=== PATIENT | male | born 1990 | race Caucasian/White ===

== ENCOUNTER 2019-02-07 22:21 | Observation (INO) ==
[2019-02-08] MEDS ORDERED: Ondansetron 4 MG/2 ML VIAL IVP PRN (00:43)
[2019-02-08] MEDS ORDERED: Naloxone 0.4 MG/ML INJ IVP PRN (00:43)
[2019-02-08] MEDS ORDERED: Ketorolac 30 MG/ML VIAL IVP PRN (00:47)
--- NOTE | 2019-02-08 00:51 | Internal Med History&Physical ---
Date of Encounter: 02/08/19 Time of Encounter: 00:48 Internal Medicine - H&P: HPI Chief complaint: Flank pain History of present illness: Mr. Geronimo is a 28 year old male with past medical history of hypertension and nephrolithiasis who initially presented to [facility] after several episodes of left-sided flank pain which began yesterday. Pain described as amparo p, 9 out of 10 in intensity radiating to his left groin. The patient took tramadol and Zofran which partially relieved his pain. However, pain recurred today and was associated with 1 episode of nausea and vomiting. Patient was seen on January 10 at [facility] for similar complaints and diagnosed with a 6 mm stone in the left proximal ureter. Patient followed up with Dr. Toscano with urology and agreed to conservative management with the hope of the stone passing on its own. Patient was given Dilaudid at [facility] which did not improve his pain. He was subsequently given Toradol which appeared to help. Laboratory workup at [facility] was relatively unremarkable. Case was discussed with Dr. Cabrera with urology who agreed to consult on patient. Patient currently afebrile, mildly hypertensive. Pain appears to be improved and tolerable. We will continue IV hydration and pain control as needed. Past Med Surg Social Fam HX - Past Medical History Medical history: hyperlipidemia, hypertension Additional medical history: kidney stone Psychiatric history: no psych history - Social History Smoking Status: Never smoker Smokeless Tobacco Status: No Alcohol use: none Drug use: none - Family History Mother Living Status: Still Living Father Living Status: Still Living Internal Medicine - H&P: Meds Atorvastatin [Lipitor] 10 mg PO HS 02/08/19 [History] Lisinopril [Zestril] 40 mg PO DAILY 02/08/19 [History] Allergy/AdvReac Type Severity Reaction Status Date / Time No Known Allergies Allergy Verified 02/08/19 00:33 All Systems PM: A 10-system review of systems was performed and is negative for pertinent findings except as documented above in the HPI. - Constitutional Constitutional: no chills, no fever(s), no night sweats - EENT Eyes: no change in vision, no discharge, no pain, no photophobia Ears: no ear discharge, no ear pain, no tinnitus Nose, mouth and throat: no dysphagia, no nasal discharge, no neck pain, no sore throat - Cardiovascular Cardiovascular ROS IM: no chest pain, no diaphoresis, no dyspnea, no lightheadedness, no palpitations, no syncope - Respiratory Respiratory: no cough, no dyspnea, no wheezing, no excessive phlegm production - Gastrointestinal Gastrointestinal: no abdominal pain, no diarrhea, no hematemesis, no hematochezia, no melena, no nausea, no vomiting - Musculoskeletal Musculoskeletal ROS IM: no numbness, no tingling - Integumentary Integumentary IM: no rash, no unusual bruising - Neurological Neurological ROS: no confusion, no convulsions, no focal weakness, no numbness, no tingling, no tremor(s) - Hematologic/Lymphatic Hematologic/Lymphatic: no easy bruising - Constitutional Vitals: Temp Pulse Resp BP Pulse Ox 98.6 F 66 16 166/91 98 02/08/19 00:12 02/08/19 00:12 02/08/19 00:12 02/08/19 00:12 02/08/19 00:12 Exam: General: Alert and oriented Skin:Normal color, no rash, no lesions. HEENT:EOM, pupils equal, round and reactive. Cardiovascular:Normal S1 & S2, no rubs, murmurs or gallops. No JVD. Pulse regular. Lungs:Normal breath sounds, no wheezes or crackles. Abdomen:Soft, non-tender, no rigidity. Extremities:No deformity, no edema or tenderness, no joint swelling or clubbing. Neurological:Normal cognition and motor skills. Pulses:Carotid and radial pulses normal +2. Rest of the physical exam is non contributory Internal Med - H&P Results - Labs CBC & Chem 7: 02/09/19 01:02 02/09/19 01:02 - Assessment and Plan (1) Nephrolithiasis Current Visit: Yes Status: Acute Assessment and plan: Recent history of nephrolithiasis. KUB obtained on 01/28/2019 again shows an elongated 6 mm x 2 mm calcification within the left ureter consistent with patient's left-sided flank pain. Currently hemodynamically stable. No evidence of sepsis. Urine shows negative nitrites and leukocyte esterase. -Continue IV fluids -Continue pain control as needed -NPO except for home meds. We will give another dose of tamsulosin in the mor melia. -Urology consult (2) Hypertension Current Visit: Yes Status: Acute Assessment and plan: History of hypertension. Blood pressure 166/91 on arrival. -Resume patient's lisinopril Qualifiers: Hypertension type: essential hypertension Qualified Code(s): I10 - Essential (primary) hypertension (3) Hyperlipidemia Current Visit: Yes Status: Acute Assessment and plan: Continue atorvastatin Qualifiers: Hyperlipidemia type: unspecified Qualified Code(s): E78.5 - Hyperlipidemia, unspecified (4) DVT prophylaxis Current Visit: Yes Status: Acute Assessment and plan: Ambulate ad pal. - Time Spent With Patient Total time spent is greater than 50% in coordination of care (as documented) at patient's floor/unit and/or counseling patient:
[2019-02-08 01:18] LABS: Bilirubin,Urine Negative (Negative); Blood,Urine Large (Negative); Clarity,Urine Cloudy (Clear); Color,Urine Yellow (Yellow); Glucose,Urine (UA) Normal (Normal); Ketones,Urine Negative (Negative); Leukocyte Esterase,Urine Negative (Negative); Nitrite,Urine Negative (Negative); PH,Urine 6.5 pH Units (5.0-8.0); Protein,Urine 30 mg/dL (Neg-Trace); Specific Gravity,Urine 1.015 (1.010-1.025); Urobilinogen,Urine Normal (Normal)
[2019-02-08 01:20] LABS: Bacteria,Urine None Seen per hpf (None-Few); Hyaline Casts,Urine None Seen per lpf (None-Few); RBC,Urine TNTC per hpf (0-3); Squamous Epithelial Cell,Urine Moderate per lpf (None-Few)
[2019-02-08 01:27] LABS: Basophils # 0.1 K/mcL (0.0-0.2); Basophils % 0.4 %; Eosinophils # 0.1 K/mcL (0.0-0.6); Eosinophils % 0.6 %; Hematocrit 40.5 % (37.5-50.1); Hemoglobin 13.5 g/dL (12.9-16.9); Immature Granulocytes % 0.3 % (0-4); Lymphocytes # 1.8 K/mcL (0.6-4.6); Lymphocytes % 16.2 %; Mean Corpuscular HGB Conc 33.3 g/dL (31.6-35.5); Mean Corpuscular Hemoglobin 29.6 pg (28.0-33.3); Mean Corpuscular Volume 88.8 fL (83.0-100.0); Monocytes # 0.7 K/mcL (0.0-1.3); Monocytes % 6.6 %; Neutrophils # 8.5 K/mcL (1.6-8.9); Platelet Count 302 K/mcL (140-400); Red Blood Count 4.56 M/mcL (4.19-5.50); Red Cell Distribution Width 12.8 % (11.5-14.5); Segmented Neutrophils % 75.9 %; White Blood Count 11.2 K/mcL (4.3-11.1)
[2019-02-08 01:45] LABS: Alanine Aminotransferase 41 Units/L (7-52); Albumin 4.4 g/dL (3.5-5.7); Albumin/Globulin Ratio 1.5 (1.1-2.2); Alkaline Phosphatase 73 Units/L (34-104); Aspartate Amino Transferase 25 Units/L (13-39); BUN/Creatinine Ratio 11 (6-26); Bilirubin,Total 1.9 mg/dL (0.3-1.0); Blood Urea Nitrogen 11 mg/dL (6-20); Calcium 9.3 mg/dL (8.6-10.3); Carbon Dioxide 22 mEq/L (23-29); Chloride 108 mEq/L (98-107); Globulin 2.9 g/dL (2.4-3.5); Glucose 108 mg/dL (70-105); Osmolality,Calculated 286 (280-300); Potassium 3.9 mEq/L (3.5-5.1); Sodium 138 mEq/L (136-145); Total Protein 7.3 g/dL (6.4-8.9); eGFR For African Americans > 60 (> 60); eGFR For Non-African Americans > 60 (> 60)
[2019-02-08] MEDS ORDERED: Lisinopril 20 MG TABLET PO SCH (02:17)
[2019-02-08] MEDS: 0.9 % Sodium Chloride 1,000 ML IVC SCH ×3 (02:45→12:22)
[2019-02-08] MEDS: Lisinopril 20 MG TABLET PO SCH (05:33)
--- NOTE | 2019-02-08 09:41 | Urology - Consult Note ---
<Yanet Painting N - Last Filed: 02/08/19 09:44> Date of Encounter: 02/08/19 Time of Encounter: 08:30 - Assessment and Plan (1) Ureteral stone with hydronephrosis Current Visit: Yes Status: Acute Assessment and plan: Patient is a 28-year-old male who presents with a 6 mm left proximal ureteral stone and hydronephrosis. We discussed surgical risks and benefits, and patient verbalized understanding. Patient signed consent, and he is prepared undergo a left ureteroscopic stone extraction with holmium laser lithotripsy, basket retrieval and left ureteral stent placement with Dr. Cabrera. Patient will remain nothing by mouth after midnight. Urology CN:HPI Consult date: 02/08/19 Reason for consult Urology: Hydronephrosis (Left ureteral stone) Requesting physician: Walt Staples History of present illness: Patient is a 28-year-old male who presents with a 6 mm left proximal ureteral stone. Patient initially saw Dr. Toscano on 01/28/2019 at which time he discussed stone extraction. Patient elected trial of passage, and he was scheduled to follow up in 4 weeks with a KUB. Patient reports pain acutely intensified last night, and he presented to the emergency department at [facility]. Patient was subsequently transferred to [facility] for urologic intervention. Patient admits to a history of nephrolithiasis, and he is passed a previous stone by medical expulsion. She admits to significant family history of renal stones through his mother. He is currently sitting upright in bed in no apparent distress, and he denies any fever, chills, dysuria or gross hematuria. Past Med Surg Social Fam HX - Past Medical History Medical history: hyperlipidemia, hypertension Additional medical history: kidney stone Psychiatric history: no psych history - Past Surgical History Surgical History: non-contributory - Social History Smoking Status: Never smoker Smokeless Tobacco Status: No Alcohol use: none Drug use: none - Family History Mother Living Status: Still Living Father Living Status: Still Living Medications and Allergies Atorvastatin [Lipitor] 10 mg PO HS 02/08/19 [History] Lisinopril [Zestril] 40 mg PO DAILY 02/08/19 [History] Allergy/AdvReac Type Severity Reaction Status Date / Time No Known Allergies Allergy Verified 02/08/19 00:33 Review of Systems - Constitutional no chills, no fatigue, no fever(s) - EENT Nose, mouth and throat: no dizziness, no headache(s) - Cardiovascular no chest pain, no diaphoresis, no dyspnea - Respiratory no cough, no dyspnea - Gastrointestinal no abdominal pain, no nausea, no vomiting - Genitourinary flank pain, no difficulty urinating, no dysuria, no hematuria, no urinary fr equency, no urinary hesitancy, no urinary incontinence, no urinary urgency - Musculoskeletal back pain, no muscle weakness - Integumentary no erythema, no rash - Neurological no confusion, no syncope - Psychiatric no anxiety, no confusion - Hematologic/Lymphatic no easy bleeding, no easy bruising - Allergic/Immunologic no throat swelling, no wheezing Exam Initial Vital Signs Temp Pulse Resp BP Pulse Ox 98.6 F 66 16 166/91 98 02/08/19 00:12 02/08/19 00:12 02/08/19 00:12 02/08/19 00:12 02/08/19 00:12 - General physical appearance Present: no distress, no pain, obese - Eyes Present: PERRL, normal ocular movement - ENT Present: normal nares, no hearing loss, no congestion - Neck Present: no masses, trachea midline, no lymphadenopathy - Respiratory Present: normal respiratory effort - Cardiovascular Cardiovascular exam IM: RRR - Abdomen Abdomen: Present: soft, non tender. Absent: distended - Integumentary Present: no rash, no abnormal pigmentation - Neurologic Present: normal coordination - Musculoskeletal Present: other (normal posture ) Urology Results - Labs 02/08/19 01:04 02/08/19 01:04 Abnormal lab results WBC 11.2 K/mcL (4.3-11.1) H 02/08/19 01:04 Chloride 108 mEq/L (98-107) H 02/08/19 01:04 Carbon Dioxide 22 mEq/L (23-29) L 02/08/19 01:04 Glucose 108 mg/dL (70-105) H 02/08/19 01:04 Total Bilirubin 1.9 mg/dL (0.3-1.0) H 02/08/19 01:04 Urine Clarity Cloudy (Clear) A 02/08/19 01:00 Urine Protein 30 mg/dL (Neg-Trace) H 02/08/19 01:00 Urine Blood Large (Negative) H 02/08/19 01:00 Urine Microscopic RBC TNTC per hpf (0-3) H 02/08/19 01:00 Urine Microscopic WBC 3-5 per hpf (0-3) H 02/08/19 01:00 Ur Squamous Epith Cells Moderate per lpf (None-Few) H 02/08/19 01:00 Diabetes panel 02/08/19 Range/Units 01:04 Sodium 138 (136-145) mEq/L Potassium 3.9 (3.5-5.1) mEq/L Chloride 108 H (98-107) mEq/L Carbon Dioxide 22 L (23-29) mEq/L BUN 11 (6-20) mg/dL Creatinine 0.96 (0.70-1.30) mg/dL Glucose 108 H (70-105) mg/dL Calcium 9.3 (8.6-10.3) mg/dL AST 25 (13-39) Units/L ALT 41 (7-52) Units/L Alkaline Phosphatase 73 (34-104) Units/L Albumin 4.4 (3.5-5.7) g/dL Calcium panel 02/08/19 Range/Units 01:04 Calcium 9.3 (8.6-10.3) mg/dL Albumin 4.4 (3.5-5.7) g/dL Pituitary panel 02/08/19 Range/Units 01:04 Sodium 138 (136-145) mEq/L Potassium 3.9 (3.5-5.1) mEq/L Chloride 108 H (98-107) mEq/L Carbon Dioxide 22 L (23-29) mEq/L BUN 11 (6-20) mg/dL Creatinine 0.96 (0.70-1.30) mg/dL Glucose 108 H (70-105) mg/dL Calcium 9.3 (8.6-10.3) mg/dL Adrenal panel 02/08/19 Range/Units 01:04 Sodium 138 (136-145) mEq/L Potassium 3.9 (3.5-5.1) mEq/L Chloride 108 H (98-107) mEq/L Carbon Dioxide 22 L (23-29) mEq/L BUN 11 (6-20) mg/dL Creatinine 0.96 (0.70-1.30) mg/dL Glucose 108 H (70-105) mg/dL Calcium 9.3 (8.6-10.3) mg/dL Total Bilirubin 1.9 H (0.3-1.0) mg/dL AST 25 (13-39) Units/L ALT 41 (7-52) Units/L Alkaline Phosphatase 73 (34-104) Units/L Albumin 4.4 (3.5-5.7) g/dL All other labs normal. - Imaging CT scan - abdomen: report reviewed CT scan - pelvis: report reviewed Consult Discharge Plan - Plan Referrals: Daily Pérez CNP [Primary Care Provider] - (Please call Monday to schedule hospital follow up appointment for 7-10 days from date of discharge. ) <Geronimo Cabrera - Last Filed: 02/08/19 18:23> Date of Encounter: 02/08/19 Urology CN:HPI History of present illness: Patient was seen and examined independently. I agree with the plan as written by Yanet Painting. If patient fails to pass a stone tonight will take the patient to the operative room tomorrow for left ureteroscopic stone extraction. Exam Initial Vital Signs Temp Pulse Resp BP Pulse Ox 98.6 F 66 16 166/91 98 02/08/19 00:12 02/08/19 00:12 02/08/19 00:12 02/08/19 00:12 02/08/19 00:12 Urology Results - Labs 02/08/19 01:04 02/08/19 01:04 Abnormal lab results WBC 11.2 K/mcL (4.3-11.1) H 02/08/19 01:04 Chloride 108 mEq/L (98-107) H 02/08/19 01:04 Carbon Dioxide 22 mEq/L (23-29) L 02/08/19 01:04 Glucose 108 mg/dL (70-105) H 02/08/19 01:04 Total Bilirubin 1.9 mg/dL (0.3-1.0) H 02/08/19 01:04 Urine Clarity Cloudy (Clear) A 02/08/19 01:00 Urine Protein 30 mg/dL (Neg-Trace) H 02/08/19 01:00 Urine Blood Large (Negative) H 02/08/19 01:00 Urine Microscopic RBC TNTC per hpf (0-3) H 02/08/19 01:00 Urine Microscopic WBC 3-5 per hpf (0-3) H 02/08/19 01:00 Ur Squamous Epith Cells Moderate per lpf (None-Few) H 02/08/19 01:00 Diabetes panel 02/08/19 Range/Units 01:04 Sodium 138 (136-145) mEq/L Potassium 3.9 (3.5-5.1) mEq/L Chloride 108 H (98-107) mEq/L Carbon Dioxide 22 L (23-29) mEq/L BUN 11 (6-20) mg/dL Creatinine 0.96 (0.70-1.30) mg/dL Glucose 108 H (70-105) mg/dL Calcium 9.3 (8.6-10.3) mg/dL AST 25 (13-39) Units/L ALT 41 (7-52) Units/L Alkaline Phosphatase 73 (34-104) Units/L Albumin 4.4 (3.5-5.7) g/dL Calcium panel 02/08/19 Range/Units 01:04 Calcium 9.3 (8.6-10.3) mg/dL Albumin 4.4 (3.5-5.7) g/dL Pituitary panel 02/08/19 Range/Units 01:04 Sodium 138 (136-145) mEq/L Potassium 3.9 (3.5-5.1) mEq/L Chloride 108 H (98-107) mEq/L Carbon Dioxide 22 L (23-29) mEq/L BUN 11 (6-20) mg/dL Creatinine 0.96 (0.70-1.30) mg/dL Glucose 108 H (70-105) mg/dL Calcium 9.3 (8.6-10.3) mg/dL Adrenal panel 02/08/19 Range/Units 01:04 Sodium 138 (136-145) mEq/L Potassium 3.9 (3.5-5.1) mEq/L Chloride 108 H (98-107) mEq/L Carbon Dioxide 22 L (23-29) mEq/L BUN 11 (6-20) mg/dL Creatinine 0.96 (0.70-1.30) mg/dL Glucose 108 H (70-105) mg/dL Calcium 9.3 (8.6-10.3) mg/dL Total Bilirubin 1.9 H (0.3-1.0) mg/dL AST 25 (13-39) Units/L ALT 41 (7-52) Units/L Alkaline Phosphatase 73 (34-104) Units/L Albumin 4.4 (3.5-5.7) g/dL All other labs normal.
[2019-02-08] MEDS ORDERED: *HR* OxyCODONE/APAP 5/325 TABLET PO PRN (13:04)
--- NOTE | 2019-02-08 13:09 | Internal Med Progress Note ---
Hospitalist Progress Note - Encounter Date of Encounter: 02/08/19 Time of Encounter: 12:00 - Subjective Interval History: Mr. Geronimo is a 28 year old male with past medical history of hypertension and nephrolithiasis who initially presented to [facility] after several episodes of left-sided flank pain. Patient was seen on January 10 at [facility] for similar complaints and diagnosed with a 6 mm stone in the left proximal ureter. Patient followed up with Dr. Toscano with urology and agreed to do conservative management with the hope of the stone passing on its own. Patient was given Dilaudid at [facility] which did not improve his pain. He was subsequently given Toradol which appeared to help. Laboratory workup at [facility] was relatively unremarkable. Was admitted in the hospital here and started him on IV hydration and symptomatic care with pain medication. Patient stated his pain much better today. He denied any fever/chills. - Exam Vitals: Temp Pulse Resp BP Pulse Ox 97.7 F 70 14 131/87 96 02/08/19 11:49 02/08/19 11:49 02/08/19 11:49 02/08/19 11:49 02/08/19 11:49 Exam: Gen: Alert, awake, Oriented to time,place and person Chest: Diminished breath sounds B/L, No wheezing, No crackles, No rales Heart: S1S2+ RRR No murmurs Abd: Soft, NT, BS +, No organomegaly Ext: No edema, pulses are palpable, No calf tenderness Back: No CVA tenderness Neuro : No acute focal neuro deficits noticed Skin: No rash. - Assessment and Plan (1) Nephrolithiasis Current Visit: Yes Status: Acute Assessment and Plan: KUD from 01/28 showed - Findings suspicious for an elongated 6 mm x 2 mm left mid ureteral stone. Urology consutled.. Scheduled for cystoscope with stent placement and lithotripsy in AM cont symptomatic and supportive care NPO after mid night (2) Hypertension Current Visit: Yes Status: Acute Assessment and Plan: Stable blood pressure with current home medications (3) Hyperlipidemia Current Visit: Yes Status: Acute Assessment and Plan: Continue atorvastatin (4) DVT prophylaxis Current Visit: Yes Status: Acute Assessment and Plan: Low risk for DVT early ambulation recommended (5) Morbid obesity with BMI of 40.0-44.9, adult Current Visit: Yes Status: Acute Assessment and Plan: counseled to loose weight. - Time Spent with Patient Total time spent is greater than 50% in coordination of care (as documented) at patient's floor/unit and/or counseling patient: Internal Medicine: Result - Labs CBC & Chem 7: 02/08/19 01:04 02/08/19 01:04 Labs: Short CBC 02/08/19 Range/Units 01:04 WBC 11.2 H (4.3-11.1) K/mcL Hgb 13.5 (12.9-16.9) g/dL Hct 40.5 (37.5-50.1) % Plt Count 302 (140-400) K/mcL Neutrophils # 8.5 (1.6-8.9) K/mcL BMP 02/08/19 01:04 Sodium 138 Potassium 3.9 Chloride 108 H Carbon Dioxide 22 L BUN 11 Creatinine 0.96 Glucose 108 H Calcium 9.3 Liver Function 02/08/19 Range/Units 01:04 Total Bilirubin 1.9 H (0.3-1.0) mg/dL AST 25 (13-39) Units/L ALT 41 (7-52) Units/L Alkaline Phosphatase 73 (34-104) Units/L Albumin 4.4 (3.5-5.7) g/dL Urine 02/08/19 Range/Units 01:00 Urine Color Yellow (Yellow) Urine Clarity Cloudy A (Clear) Urine pH 6.5 (5.0-8.0) pH Units Ur Specific [place] 1.015 (1.010-1.025) Urine Protein 30 H (Neg-Trace) mg/dL Urine Glucose (UA) Normal (Normal) mg/dL Consult Discharge Plan - Plan Referrals: Daily Pérez, HIGHWAY ENGINEERING TECHNICIAN [Primary Care Provider] - (3) Hyperlipidemia Qualifiers: Hyperlipidemia type: unspecified Qualified Code(s): E78.5 - Hyperlipidemia, unspecified
[2019-02-09 01:24] LABS: Hematocrit 38.8 % (37.5-50.1); Hemoglobin 12.9 g/dL (12.9-16.9); Mean Corpuscular HGB Conc 33.2 g/dL (31.6-35.5); Mean Corpuscular Hemoglobin 30.1 pg (28.0-33.3); Mean Corpuscular Volume 90.4 fL (83.0-100.0); Mean Platelet Volume 10.1 fL (9.4-12.4); Platelet Count 261 K/mcL (140-400); Red Blood Count 4.29 M/mcL (4.19-5.50); Red Cell Distribution Width 12.8 % (11.5-14.5)
[2019-02-09 01:35] LABS: White Blood Count 5.3 K/mcL (4.3-11.1)
[2019-02-09 01:40] LABS: Blood Urea Nitrogen 13 mg/dL (6-20); Calcium 9.2 mg/dL (8.6-10.3); Carbon Dioxide 23 mEq/L (23-29); Chloride 108 mEq/L (98-107); Glucose 105 mg/dL (70-105); Osmolality,Calculated 288 (280-300); Potassium 3.7 mEq/L (3.5-5.1); Sodium 139 mEq/L (136-145)
[2019-02-09 01:55] LABS: BUN/Creatinine Ratio 15 (6-26); eGFR For African Americans > 60 (> 60); eGFR For Non-African Americans > 60 (> 60)
[2019-02-09] MEDS: Lisinopril 20 MG TABLET PO SCH (04:22)
--- NOTE | 2019-02-09 07:02 | Anesthesia Evaluation PreOp ---
Date of Encounter: 02/09/19 Time of Encounter: 07:00 - Past History Planned Operation: cysto retro stone left Cardiac History: HTN, Hyperlipidemia Pulmonary History: Denies Any Significant HX PEDIATRIC CRITICAL CARE NURSE History: Denies Any Significant HX Other Medical History: Denies Any Significant HX, Renal (stones) Anesthesia History: No Prior Anesthetic Complications, Past Anesthesia Alcohol Use: none Drug use: none Medications and Allergies Atorvastatin [Lipitor] 10 mg PO HS 02/08/19 [History] Lisinopril [Zestril] 40 mg PO DAILY 02/08/19 [History] Allergy/AdvReac Type Severity Reaction Status Date / Time No Known Allergies Allergy Verified 02/08/19 00:33 - Meds/Allergy Pre-op Review Medications Reviewed: Yes Allergies Reviewed: Yes Beta Blockers on Current Med List: No Anesthesia Results - Labs 02/09/19 01:02 02/09/19 01:02 Anesthesia Exam Vital Signs/O2 Sat, Most Current Temp Pulse Resp BP Pulse Ox 98.6 F 64 16 139/76 96 02/09/19 03:36 02/09/19 03:36 02/09/19 03:36 02/09/19 03:36 02/09/19 03:36 - HEENT Pupil (Motor): Pupils equal, EOMI Mallampati: III Teeth: Normal Oral Opening: Greater than 3 - PEDIATRIC CRITICAL CARE NURSE LOC: Oriented PEDIATRIC CRITICAL CARE NURSE Motor: Normal RUE, Normal LUE, Normal RLE, Normal LLE, Normal Face PEDIATRIC CRITICAL CARE NURSE Sensory: Normal: RUE, LUE, RLE, LLE, Face - Cardiac Rhythm: Regular Murmur: None JVD: No - Pulmonary Breath Sounds: bilateral Clear Respiratory Effort: Symmetrical Anesthesia Assess/Plan ASA Score: 3 Level of consciousness: Cooperative, Oriented, Tranquil Anesthetic Plan: General Monitoring Plan: Standard Monitors Recovery Plan: PACU
[2019-02-09] MEDS ORDERED: *HR* Succinylcholine 200 MG/10 ML VIAL IVP ONE (07:07)
[2019-02-09] MEDS ORDERED: *HR* HYDROmorphone (PF) 1 MG/ML SYRINGE IVP PRN (07:07)
[2019-02-09] MEDS ORDERED: *HR* Propofol 200 MG/20 ML VIAL IVP ONE ×2 (07:07)
[2019-02-09] MEDS ORDERED: *HR* OxyCODONE Immed Rel 5 MG TABLET PO PRN (07:07)
[2019-02-09] MEDS ORDERED: Dexamethasone 4 MG/ML VIAL ONE (07:07)
[2019-02-09] MEDS ORDERED: *HR* Promethazine 25 MG/ML VIAL IVP PRN (07:07)
[2019-02-09] MEDS ORDERED: Lidocaine -MPF 2% 2 ML VIAL ONE ×2 (07:07→07:12)
[2019-02-09] MEDS ORDERED: Ondansetron 4 MG/2 ML VIAL ONE (07:07)
[2019-02-09] MEDS ORDERED: *HR* Meperidine 25 MG/ML SYRINGE IVP PRN (07:07)
[2019-02-09] MEDS ORDERED: *HR* Midazolam HCl 2 MG/2 ML VIAL ONE (07:07)
[2019-02-09] MEDS ORDERED: *HR* FentaNYL (PF) 100 MCG/2 ML VIAL ONE (07:07)
[2019-02-09] MEDS ORDERED: Lidocaine HCL 4 ML Topical Solution (Laryng-O-Jet Kit Sterile Pak) TP ONE (07:21)
--- NOTE | 2019-02-09 07:29 | Urology Progress Note ---
Date of Encounter: 02/09/19 Time of Encounter: 07:28 - Assessment and Plan (1) Ureteral stone with hydronephrosis Current Visit: Yes Status: Acute Assessment and plan: to OR today for left ureteroscopic stone extraction Progress Note Narrative: patient seen this am. minimal pain. Objective Initial Vital Signs Temp Pulse Resp BP Pulse Ox 98.6 F 66 16 166/91 98 02/08/19 00:12 02/08/19 00:12 02/08/19 00:12 02/08/19 00:12 02/08/19 00:12 - General physical appearance Present: well developed, well nourished - Abdomen Present: soft. Absent: tender - Labs 02/09/19 01:02 02/09/19 01:02 Diabetes panel 02/09/19 Range/Units 01:02 Sodium 139 (136-145) mEq/L Potassium 3.7 (3.5-5.1) mEq/L Chloride 108 H (98-107) mEq/L Carbon Dioxide 23 (23-29) mEq/L BUN 13 (6-20) mg/dL Creatinine 0.87 (0.70-1.30) mg/dL Glucose 105 (70-105) mg/dL Calcium 9.2 (8.6-10.3) mg/dL Calcium panel 02/09/19 Range/Units 01:02 Calcium 9.2 (8.6-10.3) mg/dL Pituitary panel 02/09/19 Range/Units 01:02 Sodium 139 (136-145) mEq/L Potassium 3.7 (3.5-5.1) mEq/L Chloride 108 H (98-107) mEq/L Carbon Dioxide 23 (23-29) mEq/L BUN 13 (6-20) mg/dL Creatinine 0.87 (0.70-1.30) mg/dL Glucose 105 (70-105) mg/dL Calcium 9.2 (8.6-10.3) mg/dL Adrenal panel 02/09/19 Range/Units 01:02 Sodium 139 (136-145) mEq/L Potassium 3.7 (3.5-5.1) mEq/L Chloride 108 H (98-107) mEq/L Carbon Dioxide 23 (23-29) mEq/L BUN 13 (6-20) mg/dL Creatinine 0.87 (0.70-1.30) mg/dL Glucose 105 (70-105) mg/dL Calcium 9.2 (8.6-10.3) mg/dL Consult Discharge Plan - Plan Referrals: Daily Pérez CNP [Primary Care Provider] - (Please call Monday to schedule hospital follow up appointment for 7-10 days from date of discharge. )
[2019-02-09] MEDS ORDERED: Isovue-300 50 ML VIAL ONE (07:34)
--- NOTE | 2019-02-09 08:14 | Operative Note ---
Date of procedure: 02/09/19 Pre-op diagnosis: left ureteral stone Post-op diagnosis: same Procedure: Left ureteroscopic laser lithotripsy of stone, left ureteroscopic basket retrieval stone fragment, left 4.8 x 28 cm ureteral stent placement Anesthesia: GETA Surgeon: Geronimo Cabrera Was there an child life assistant present: No Estimated blood loss (cc): 0 Specimen: left ureteral stone Condition: stable Disposition: PACU Procedure in Detail: Patient was prepped and draped in normal sterile fashion. Timeout procedure performed. I then inserted the semirigid ureteroscope into the patient's bladder. I was able to cannulate the left ureteral orifice. I then was able to locate the proximal ureteral stone using fluoroscopy as well as by advancing the scope up to this level. I then used the holmium laser to fragment the stone. All stone fragments were then removed using a basket device. I then placed a sensor wire back into the left kidney and placed a 4.8 x 28 cm stent with good curl seen in the left kidney and in the bladder. Patient taken to PACU in stable condition
--- NOTE | 2019-02-09 08:15 | Event Note ---
Date of Encounter: 02/09/19 Time of Encounter: 08:14 Patient okay to discharge home from urology standpoint. Patient can remove stent in 2-3 days. Patient to follow-up with our office in 2-3 weeks. Patient can call on Monday to set up appointment.
--- NOTE | 2019-02-09 08:45 | Anesthesia Evaluation Post Op ---
Date of Encounter: 02/09/19 Time of Encounter: 08:44 - Vital Signs Vital Signs: Vital Signs/O2 Sat/Glucose, Most Current Temp Pulse Resp BP Pulse Ox 02/09/19 08:37 72 16 126/72 95 02/09/19 08:27 70 12 122/76 96 02/09/19 08:17 98.0 F 82 16 124/80 97 02/09/19 06:19 97.7 F 67 15 161/82 94 Vital Signs/O2 Sat, Most Current Temp Pulse Resp BP Pulse Ox 98.0 F 72 16 126/72 95 02/09/19 08:17 02/09/19 08:37 02/09/19 08:37 02/09/19 08:37 02/09/19 08:37 - Lungs Lungs: Clear Ascult./Percussion - Airway Airway: Non-obstructed - Cardiovascular Regular Rate, Baseline Rhythm - Mental Status Mental Status: Alert & Oriented, Answers Appropriately - Nausea Vomiting Nausea Vomiting: Not Present - Hydration Hydration: Tolerates oral liquids - Discharge PostOp Status: Transfer Patient to floor
[2019-02-09] MEDS ORDERED: *HR* OxyCODONE/APAP 5/325 TABLET PO PRN (09:55)
[2019-02-09] MEDS ORDERED: Ondansetron 4 MG/2 ML VIAL IVP PRN (09:55)
[2019-02-09] MEDS ORDERED: Naloxone 0.4 MG/ML INJ IVP PRN (09:55)
--- NOTE | 2019-02-09 10:47 | Discharge Summary ---
- NOTES TO OUTPATIENT PROVIDER Notes to Outpatient Provider: All up with urology 2-3 weeks to remove stents in 2-3 days Orders not resulted at time of discharge: Pending orders 02/09/19 08:19 Surgical Pathology [PTH] Routine Date of Encounter: 02/09/19 Time of Encounter: 10:44 - Discharge Diagnosis (1) Nephrolithiasis Priority: Primary Status: Acute (2) Hypertension Priority: Secondary Status: Acute Qualifiers: Hypertension type: essential hypertension Qualified Code(s): I10 - Essential (primary) hypertension (3) Hyperlipidemia Priority: Secondary Status: Acute Qualifiers: Hyperlipidemia type: unspecified Qualified Code(s): E78.5 - Hyperlipidemia, unspecified Hospital course: Mr. Geronimo is a 28 year old male lilia Geronimo is a 28 year old male with past medical history of hypertension and nephrolithiasis who initially presented to [facility] after several episodes of left-sided flank pain. Patient was seen on January 10 at [facility] for similar complaints and diagnosed with a 6 mm stone in the left proximal ureter. Patient followed up with Dr. Toscano with urology and agreed to do conservative management with the hope of the stone passing on its own. Patient was given Dilaudid at [facility] which did not improve his pain. He was subsequently given Toradol which appeared to help. Laboratory workup at [facility] was relatively unremarkable. Was admitted in the hospital here and started him on IV hydration and symptomatic care with pain medication-aged underwent left uroscopic laser lithotripsy of stone left uroscopic basket retrieval stone fragments-with ureteral stent placement per urology-he tolerated procedure well and he will remove stents in 2-3 days follow-up with urology in 2 weeks-patient will be discharged with 2 days of pain medications-prescription of Percocet- Oarrs report reviewed -He will follow-up with PCP - Time Spent with Patient Total time spent providing and/or coordinating discharge services: - Discharge Medications Prescriptions: New OxyCODONE/APAP 5/325 [Percocet 5/325 MG] 1 each PO Q6HR PRN 2 Days #8 tablet PRN Reason: Moderate Pain Continued Atorvastatin [Lipitor] 10 mg PO HS Lisinopril [Zestril] 40 mg PO DAILY Home Medications: Atorvastatin [Lipitor] 10 mg PO HS 02/08/19 [History] Lisinopril [Zestril] 40 mg PO DAILY 02/08/19 [History] OxyCODONE/APAP 5/325 [Percocet 5/325 MG] 1 each PO Q6HR PRN 2 Days #8 tablet 02/09/19 [Rx] Allergies/Adverse Reactions: Allergy/AdvReac Type Severity Reaction Status Date / Time No Known Allergies Allergy Verified 02/08/19 00:33 Date of admission: 02/08/19 00:02 Primary care physician: Daily Pérez CNP Consults: 02/08/19 00:47 Consult to Urology [CONS] Routine Consulting Provider: Urology Ashley Reason for Consult: Left ureteral stone Call Completed: Yes Discharging clinician: Danielle Santana Anticipated date of discharge: 02/09/19 - Constitutional Vitals: Temp Pulse Resp BP Pulse Ox 98.5 F 72 20 130/84 97 02/09/19 08:57 02/09/19 08:57 02/09/19 08:57 02/09/19 08:57 02/09/19 08:57 Exam: Skin: Free of rash and discoloration. Eyes: Sclera is white. There is no discharge from eyes. ENMT: Oral/pharyngeal mucosa is normal in appearance. There is no discharge from nose or ears. Respiratory: Normal breath sounds with no crackles and wheezes bilaterally. CV: Heart is regular with no gallop or murmur. GI: Abdomen is flat and soft with no palpable mass or visceromegaly. : There is no tenderness in patient's flanks bilaterally. Neuro exam: He has good strength in upper and lower extremities. He has normal eye movements. Psychiatric: He has normal affect. His thought process is appropriate to the situation. - Patient Status Disposition: Home, Self-Care Functional capacity at discharge: independent ambulation Overall status at discharge: patient is back to baseline - Discharge Instructions Instructions: Chronic Hypertension (DC) Follow Up With: Daily Pérez CNP [Primary Care Provider] - (Please call Monday to schedule hospital follow up appointment for 7-10 days from date of discharge. ) - Diet and Activity Activity: increase activity as tolerated Diet: advance to your usual diet
[2019-02-09 11:20] VITALS: BP 146/83
[2019-02-10] MEDS ORDERED: Lisinopril 20 MG TABLET PO SCH (06:00)
== END 2019-02-09 13:55 | disposition home or self-care (01) ==
LOC: 3BNU → SUATTDRO 02-08 00:02
PROVIDERS: ADMIT Internal Medicine; ATTEND Family Medicine